=== PATIENT | male | born 1935 | race Caucasian/White ===

== ENCOUNTER 2018-12-24 10:09 | Inpatient (IN) | payer MEDICARE, BC ==
[~2018-12-24] VITALS: Ht 182.9 cm; Wt 94.3 kg
[2018-12-24] VITALS (7 sets, daily range): BP systolic 113–165; BP diastolic 64–756; BMI 39.4
[2018-12-24] MEDS ORDERED: BAYER CHEWABLE81 MG PO (10:29)
[2018-12-24] MEDS ORDERED: PACERONE200 MG PO (10:29)
[2018-12-24] MEDS ORDERED: FLOMAX0.4 MG PO (10:31)
[2018-12-24] MEDS ORDERED: ELIQUIS5 MG PO (10:31)
[2018-12-24 10:32] LABS: BASOPHILS 0.2 % (0-2); EOSINOPHILS 6.9 % (0-7); HEMATOCRIT 36.5 % (36.0-48.0); IMMATURE GRANULOCYTES 0.2 % (0-5); MCHC 32.9 g/dL (31.0-37.0); MCV 109.6 fL (80.0-100.0); MEAN PLATELET VOLUME 9.5 fL (7.4-10.4); MONOCYTES 8.3 % (2-11); NEUTROPHILS 54.4 % (40-80); PLATELET COUNT 142 10x3/uL (130-400); RBC 3.33 10x6/uL (4.00-5.40); RDW 16.5 % (11.5-14.5); WBC 4.3 10x3/uL (4.8-10.8)
[2018-12-24] MEDS ORDERED: OXYBUTYNIN CHLOR5 MG PO (10:32)
[2018-12-24] MEDS ORDERED: METOPROLOL TART25 MG PO (10:32)
[2018-12-24] MEDS ORDERED: NAMENDA10 MG PO (10:32)
[2018-12-24] MEDS ORDERED: TIROSINT75 MCG PO (10:32)
[2018-12-24] MEDS ORDERED: RYTHMOL SR225 MG PO (10:33)
[2018-12-24] MEDS ORDERED: ZOCOR40 MG PO (10:33)
[2018-12-24 10:38] LABS: APTT 33.7 SECONDS (22.8-39.4); INR 1.47 (0.85-1.17); PROTIME 17.2 SECONDS (11.6-15.0)
[2018-12-24 10:43] LABS: ALBUMIN 2.8 g/dL (3.4-5.0); ALKALINE PHOSPHATASE 72 U/L (46-116); ALT (SGPT) 13 U/L (10-68); BILIRUBIN - TOTAL 0.52 mg/dL (0.2-1.3); CALC OSMOLALITY 282 mosm/kg (275-300); CALCIUM 7.9 mg/dL (8.5-10.1); CARBON DIOXIDE 29.4 mmol/L (21.0-32.0); CHLORIDE - SERUM 104 mmol/L (98-107); CREATININE - SERUM 1.9 mg/dL (0.6-1.3); GLUCOSE 97 mg/dL (74-106); POTASSIUM - SERUM 4.2 mmol/L (3.5-5.1); PROTEIN - SERUM 6.2 g/dL (6.4-8.2); SODIUM 141 mmol/L (136-145); UREA NITROGEN 17 mg/dL (7-18); eGFR NON AFRICAN AMERICAN 27 mL/min (90-120)
[2018-12-24 10:53] LABS: CKMB 0.1 U/L (0.0-3.6); CREATINE KINASE 26 UL (21-232)
[2018-12-24 10:54] LABS: TROPONIN-I < 0.017 ng/mL (0.000-0.060)
--- NOTE | 2018-12-24 12:18 | NUR ---
JHA IN PLACE ON ARRIVAL
--- NOTE | 2018-12-24 12:49 | NUR ---
URINE SPECIMEN COLLECTED FROM JHA AND SENT TO LAB AT THIS TIME.
[2018-12-24 12:54] LABS: COLOR YELLOW (YELLOW)
[2018-12-24 12:55] LABS: APPEARANCE CLEAR (CLEAR); BILIRUBIN NEGATIVE (NEGATIVE); GLUCOSE NEGATIVE (NEGATIVE); KETONE NEGATIVE (NEGATIVE); NITRITE NEGATIVE (NEGATIVE); PROTEIN NEGATIVE (NEGATIVE); UROBILINOGEN NORMAL (NORMAL)
[2018-12-24 13:03] LABS: BACTERIA FEW /hpf (NONE SEEN); EPITHELIAL CELLS RARE /hpf (0-5); WHITE CELLS - URINE 0-5 /hpf (0-5)
--- NOTE | 2018-12-24 14:55 | MORECARE ---
CASE MANAGEMENT DISCHARGE SUMMARY PATIENT: ERIC BRADEN UNIT: [id number] ADM DATE: 12/24/18 AGE: 82 : 33 SEX: M ROOM/BED: D.2119 AUTHOR: ALEISHA ORO PHYSICIAN: REFERRING PHYSICIAN: LILIYA ARBOLEDA MD DATE OF SERVICE: 12/24/18 Discharge Plan Patient Name: ERIC BRADEN Facility: [facility]:[place] : 1935 Planned Disposition: Anticipated Discharge Date: Discharge Date: Expected LOS: Initial Reviewer: [email or web address] Initial Review Date: 12/24/2018 Generated: 12/24/18 3:55 pm Patient Name: ERIC BRADEN Page [phone] at 6035 All edits/amendments must be made on the electronic document DICTATION DATE: 12/24/18 1454 FUEL OIL TRUCK DRIVER: [place] 12/24/18 1454 RPT#: [id number] DC DATE: STATUS: ADM IN [facility] [address] [place] [address] END OF REPORT
--- NOTE | 2018-12-24 15:31 | NUR ---
RECIEVED FROM ER. ALERT AND ORIENTED TO PERSON. TELEMERTY SHOWS SB AT 56. SR UP WITH CALL LIGHT IN REACH. FAMILY AT BEDSIDE.
[2018-12-24] MEDS ORDERED: DONEPEZIL HCL10 MG (15:52)
--- NOTE | 2018-12-24 16:19 | NUR ---
ASSESSMENT COMPLETE AT THIS TME PT DENIES ANY PAIN OR NEEDS AT THIS TELEMETRY SHOWS SR RATE 62 WILL CONTINUE TO MONITOR
--- NOTE | 2018-12-24 21:57 | NUR ---
INITIAL ROUNDS COMPLETED AT 1914 HRS. PT STATED HE NEEDED TO HAVE A BM. ASSISTED TO BSC. FLATUS NOTED. ASSISTED BACK TO BED. PT UNSTEADY ON FEET. ASSESSMENT COMPLETED AT 1954 HRS. VSS. SR PER CM HR 60. PT ALERT, ORIENTED TO PERSON AND PLACE. REORIENTED TO TIME AND SITUATION. IV TO L HAND WITH LR AT 125CC/HR. IV PATENT. IV TOLFA SL. O2 2LNC. LUNGS DIMINISHED IN BASES BILAT. CHRONIC JHA ON ADMISSION. MAR. PM MEDS GIVEN. PT CURRENTLY REATING WITH EYES CLOSED. RESP EVEN AND REGULAR. SR UP X2, CALL LIGHT WITHIN REACH AND BED ALRM ON.
--- NOTE | 2018-12-25 00:09 | NUR ---
PT ASSISTED TO BSC. FLATUS NOTED. ASSISTED BACK TO BED. IV TO L HAND LEAKING. DC'D WITH CATHETER INTACT. IV SWITCHED TO LFA WITH LR AT 125CC/HR. SR UP X2, CALL LIGHT WITHIN REACH AND BED ALARM ON.
--- NOTE | 2018-12-25 02:13 | NUR ---
PT RESTING WITH EYES CLOSED. RESP EVEN AND REGULAR. SR UP X2, CALL LIGHT WITHIN REACH AND BED ALARM ON.
[2018-12-25 03:55] VITALS: BP 137/74
--- NOTE | 2018-12-25 04:59 | NUR ---
VSS. PT STATES HE FEELS MUCH BETTER. CALL LIGHT WITHIN REACH AND BED ALARM ON.
--- NOTE | 2018-12-25 05:40 | NUR ---
VSS THROUGHOUT NIGHT. SR/SB PER CM HR IN 50'S AND LOW 60'S. STATES FEELS MUCH IMPROVED. NEEDS MET; WILL CONTINUE TO MONITOR.
[2018-12-25 07:14] LABS: BASOPHILS 0 % (0-2); EOSINOPHILS 7.2 % (0-7); HEMATOCRIT 36.5 % (42.0-54.0); LYMPHOCYTES 33.3 % (15-50); MCHC 32.9 g/dL (31.0-37.0); MCV 109.6 fL (80.0-100.0); MONOCYTES 8.1 % (2-11); NEUTROPHILS 51.4 % (40-80); PLATELET COUNT 135 10x3/uL (130-400); RBC 3.33 10x6/uL (4.20-6.10); RDW 16.5 % (11.5-14.5); WBC 4.4 10x3/uL (4.8-10.8)
--- NOTE | 2018-12-25 07:20 | NUR ---
ASSESSMENT COMPLETED. ALERT AND ORIENTED. TELEMERTY SHOWS SR. LEFT HAND IV WITH LR AT 125. UP WITH ASSIST. JHA CATH PATENT. BED ALARM ON. SR UP WITH CALL LIGHT IN REACH. FAMILY AT BEDSIDE
[2018-12-25 07:29] LABS: ALBUMIN 2.6 g/dL (3.4-5.0); ANION GAP 10.7 mmol/L (8-16); BILIRUBIN - TOTAL 0.44 mg/dL (0.2-1.3); CARBON DIOXIDE 29.4 mmol/L (21.0-32.0); CREATININE - SERUM 1.5 mg/dL (0.6-1.3); MAGNESIUM - SERUM 1.7 mg/dL (1.8-2.4); POTASSIUM - SERUM 4.1 mmol/L (3.5-5.1)
[2018-12-25 09:40] VITALS: BP 181/87
--- NOTE | 2018-12-25 10:41 | NUR ---
RESTING QUIETLY NAD NOTED SINUS FABY RATE 54 ON MONITOR
[2018-12-25 14:30] VITALS: BP 94/48
--- NOTE | 2018-12-25 14:52 | NUR ---
LYING QUIETLY IN BED WITH HOB UP. FAMILY AT BEDSIDE. IV INFUSING WELL. TELEMERTY SHOWS SR
[2018-12-25 16:48] LABS: % SATURATION 18 % (15-55); IRON 45 ug/dl (35-150); TOTAL IRON BIND CAPACITY 249 ug/dl (260-445); UNSAT IRON BIND CAPACITY 204 ug/dl (150-375)
[2018-12-25 17:53] VITALS: BP 174/81
[2018-12-25 20:00] VITALS: BP 137/68
--- NOTE | 2018-12-25 20:00 | NUR ---
INITIAL ROUNDS. PT CONFUSED/DISORIENTED TO PLACE AND TIME. THINKS HIS IS DOWN THE LAND IN ANOTHER ROOM AND CONTINUALLY TRIES TO GET SOMEONE TO TAKE HIM TO THE ROOM. ASSESSMENT COMPLETED. IVF INFUSING TO LFA. WILL MONITOR AND CPOC.
--- NOTE | 2018-12-25 22:37 | NUR ---
PT FOUND SITTING ON SIDE OF BED WITH BLOOD ALL OVER THE FLOOR. HE HAD SNAPPED HIS IV TUBING IN HALF AND THE IV WAS INTACT, BUT FREELY BLEEDING ONTO THE FLOOR. SALINE LOCKED IV SITE. NEW LINENS/GOWN/CLEANING OF ROOM WHERE BLOOD WAS LOCATED. PT SEEMING SURPRISED THAT HE "DID ALL THAT!" CURRENTLY SITTING IN BEDSIDE CHAIR WITH JAYCEE ALARM IN PLACE.
[2018-12-26] VITALS: BP 188/83
--- NOTE | 2018-12-26 01:02 | NUR ---
PT NOW IN BED WITH EYES CLOSED. RESPS NONLABORED. BED ALARM IN PLACE. MONITOR AND CPOC.
--- NOTE | 2018-12-26 02:39 | NUR ---
PT OFF TELEMETRY. FOUND OOB TRYING TO PULL OFF HIS JHA CATHETER BAG AND ALSO HAD RIPPED THE CORD TO HIS JAYCEE MAT APART SO THAT IT NO LONGER WORKED. PT THEN WAS WANTING TO GO TO BATHROOM TO SIT ON TOILET. ASSISTED TO BATHROOM TO SIT ON TOILET, BUT DID NOT HAVE ANY BM. ASSISTED BACK TO BED. NEW JAYCEE MAT IN PLACE. IV TO LFA HAS BEEN SALINE LOCKED DUE TO PT'S FREQUENT ACTIVITIES AND RAMBUCTIOUS BEHAVIORS.
[2018-12-26 04:00] VITALS: BP 212/96
[2018-12-26 06:29] LABS: BASOPHILS 0.2 % (0-2); EOSINOPHILS 6.7 % (0-7); HEMATOCRIT 37.8 % (42.0-54.0); HEMOGLOBIN 12.6 g/dL (13.5-17.5); IMMATURE GRANULOCYTES 0.2 % (0-5); LYMPHOCYTES 26.5 % (15-50); MCH 36.2 pg (26.0-34.0); MCHC 33.3 g/dL (31.0-37.0); MCV 108.6 fL (80.0-100.0); MEAN PLATELET VOLUME 10.1 fL (7.4-10.4); NEUTROPHILS 57.4 % (40-80); PLATELET COUNT 149 10x3/uL (130-400); RBC 3.48 10x6/uL (4.20-6.10); RDW 16.5 % (11.5-14.5); WBC 5.4 10x3/uL (4.8-10.8)
[2018-12-26 07:10] LABS: ALBUMIN 2.7 g/dL (3.4-5.0); ANION GAP 13.3 mmol/L (8-16); BILIRUBIN - TOTAL 0.58 mg/dL (0.2-1.3); CARBON DIOXIDE 26.7 mmol/L (21.0-32.0); CREATININE - SERUM 1.3 mg/dL (0.6-1.3); MAGNESIUM - SERUM 1.6 mg/dL (1.8-2.4); PROTEIN - SERUM 6.2 g/dL (6.4-8.2)
[2018-12-26 08:37] VITALS: BP 200/96
--- NOTE | 2018-12-26 09:04 | NUR ---
TELEMETRY SR. UP AMBULATING WITH PT ASSIST. WILL CONT. PLAN OF CARE.
[2018-12-26 11:28] VITALS: BP 171/87
[2018-12-26 12:41] VITALS: Ht 182.9 cm; Wt 94.3 kg
[2018-12-26 15:43] VITALS: BP 157/93
[2018-12-26] MEDS ORDERED: ZITHROMAX500 MG PO (16:58)
--- NOTE | 2018-12-26 18:37 | NUR ---
REPORT CALLED TO [facility]. IV AND TELEMETRY DCD. LEAVING FOR [facility] VIA EMS.
--- NOTE | 2018-12-27 07:44 | MORECARE ---
CASE MANAGEMENT DISCHARGE SUMMARY PATIENT: ERIC BRADEN UNIT: [id number] ADM DATE: 12/24/18 AGE: 82 : 33 SEX: M ROOM/BED: D.2119 AUTHOR: ALEISHA ORO PHYSICIAN: REFERRING PHYSICIAN: LILIYA ARBOLEDA MD DATE OF SERVICE: 12/27/18 Discharge Plan Patient Name: ERIC BRADEN Facility: [facility]:[place] : 1935 Planned Disposition: Nursing Facility [facility] [place] Anticipated Discharge Date: 12/26/18 Discharge Date: 12/26/2018 Expected LOS: 2 Initial Reviewer: [email or web address] Initial Review Date: 12/24/2018 Generated: 12/27/18 8:44 am Last DP export: 12/24/18 1:55 p Patient Name: ERIC BRADEN Page 26743 at 0744 All edits/amendments must be made on the electronic document DICTATION DATE: 12/27/1844 LANDSCAPING AND GROUNDSKEEPING LABORER: [place] 12/27/18 0744 RPT#: [id number] DC DATE:12/26/18 STATUS: DIS IN [facility] [address] [place] [address] END OF REPORT
--- NOTE | 2018-12-27 08:28 | MORECARE ---
CASE MANAGEMENT DISCHARGE SUMMARY PATIENT: ERIC BRADEN UNIT: [id number] ADM DATE: 12/24/18 AGE: 82 : 33 SEX: M ROOM/BED: D.2119 AUTHOR: ALEISHA ORO PHYSICIAN: REFERRING PHYSICIAN: LILIYA ARBOLEDA MD DATE OF SERVICE: 12/27/18 Discharge Plan Patient Name: ERIC BRADEN Facility: [facility]:[place] : 1935 Planned Disposition: Nursing Facility [facility] Cert Anticipated Discharge Date: 12/26/18 Discharge Date: 12/26/2018 Expected LOS: 2 Initial Reviewer: [email or web address] Initial Review Date: 12/24/2018 Generated: 12/27/18 9:28 am Comments DCP- Discharge Planning Updated by [email or web address]: Tone Ann on 12/27/18 7:[address] Patient Name: ERIC BRADEN Encounter No: [id number] : 1935 Primary Insurance: MEDICARE A & B Anticipated DC Date: 12-26-2018 Planned Disposition: Nursing Facility [facility] Cert External Planned Provider: [facility], MEDICARE REHAB BED DCP follow-up note: CM REVIEWED CHART, PT DISCHARGED HOME LAST EVENING. CM CONTACED [facility] WHO INFORMED CM THAT PT RETURNED TO SKILLED Bed AT THE NURSING FACILITY. Tone Ann, CASE MANAGEMENT Last DP export: 12/27/18 6:44 a Patient Name: ERIC BRADEN Page [phone] at 0828 All edits/amendments must be made on the electronic document DICTATION DATE: 12/27/18826 TOOLING SPECIALIST: GA 12/27/18826 RPT#: [id number] DC DATE:12/26/18 STATUS: DIS IN [facility] [address] [place] [address] END OF REPORT
[2018-12-27 10:21] LABS: FOLATE (FOLIC ACID) - SERUM 14.8 ng/mL (>3.0)
== END 2018-12-26 18:37 | DRG 193 ==
LOC: EDSEX 10:09 → D.ER 10:09 → EDBD 10:09 → D.EDHOLD 13:48 → D.M2 13:48
PROVIDERS: Family Medicine; ADMIT Family Medicine
DX: J18.9 Pneumonia, unspecified organism (principal); J96.21 Acute and chronic respiratory failure with hypoxia; N17.9 Acute kidney failure, unspecified; E03.9 Hypothyroidism, unspecified; I10 Essential (primary) hypertension; I48.0 Paroxysmal atrial fibrillation; D64.9 Anemia, unspecified; R91.1 Solitary pulmonary nodule; E78.5 Hyperlipidemia, unspecified; I25.10 Atherosclerotic heart disease of native coronary artery without angina pectoris; N40.0 Benign prostatic hyperplasia without lower urinary tract symptoms; G30.9 Alzheimer's disease, unspecified; F02.80 Dementia in other diseases classified elsewhere, unspecified severity, without behavioral disturbance, psychotic disturbance, mood disturbance, and anxiety; Z85.038 Personal history of other malignant neoplasm of large intestine; Z86.718 Personal history of other venous thrombosis and embolism; Z79.01 Long term (current) use of anticoagulants; J43.9 Emphysema, unspecified; Z86.73 Personal history of transient ischemic attack (TIA), and cerebral infarction without residual deficits; Z87.891 Personal history of nicotine dependence; I44.7 Left bundle-branch block, unspecified